=== PATIENT | female | born 1975 | race Caucasian/White ===

== ENCOUNTER → 2016-12-21 | Outpatient (CLI) | payer BC ==
--- NOTE | 2016-12-21 13:31 | RADIOLOGY REPORT PS360 ---
US PELVIS-TRANSVAGINAL ONLY HISTORY: Follow-up ovarian cyst PERIMENOPAUSAL ORDERING PHYSICIAN: Blanca Leo MD PATIENT AGE: 41 years COMPARISON: 09 14 16 FINDINGS: Uterus is 8.6 x 4 x 5 cm area combined endometrial thickness is 7 mm. Nabothian cysts are once again noted. There is a 15 x 12 mm area of heterogeneous echogenicity in the fundus of the uterus consistent with fibroid unchanged. There are bilateral ovarian follicles. Previously there was a complex 2.9 cm left ovarian lesion. A 14 mm cyst is present in the left ovary. Previously noted complex lesion no longer apparent. Left ovary measures 2.4 x 1.9 cm. The right ovary measures 2.4 x 2.3 cm. No cul-de-sac fluid evident. IMPRESSION: 1. Interval decrease in size in left ovarian cyst as described above. 2. Small uterine fibroid
[2016-12-22 06:37] LABS: FSH 18.4 mIU/mL (.); LH 7.5 mIU/mL (.)
[2016-12-23 12:41] LABS: Estrogens, Total 154 pg/mL (.)
== END ==
LOC: RAD 10:19
PROVIDERS: Family Medicine
DX: N95.1 Menopausal and female climacteric states (principal)